=== PATIENT | male | born 1955 | race Caucasian/White ===

== ENCOUNTER 2021-03-30 02:14 | Emergency (ER) | payer MEDICARE, OTHER ==
[2021-03-30 05:53] LABS: HEMOGLOBIN 15.4 gm/dl (14.0-17.5); RED BLOOD COUNT 4.47 M/UL (4.20-5.50); WHITE BLOOD COUNT 11.4 K/UL (4.5-11.0)
[2021-03-30 06:24] LABS: BUN/CREATININE RATIO 31 (0-10)
[2021-03-30] MEDS ORDERED: PEPCID AC20 MG PO (09:49)
== END 2021-03-30 10:05 | disposition home or self-care (01) ==
LOC: ER1 02:14
PROVIDERS: Physician Assistant
DX: R04.2 Hemoptysis (principal); R10.13 Epigastric pain; R07.9 Chest pain, unspecified; Z20.822 Contact with and (suspected) exposure to COVID-19; I10 Essential (primary) hypertension; E78.5 Hyperlipidemia, unspecified
CPT/HCPCS: 0240U; 80053; 82140; 82150; 82550; 82553; 83605; 83690; 84484; 85025; 86850; 86900; 86901; 96374; 96375; 99284; C9113; G0480; J2405; J7030; Q9967

== ENCOUNTER 2021-04-15 10:52 | Emergency (ER) | payer MEDICARE, OTHER ==
[~2021-04-15 10:52] MED LIST: PEPCID AC20 MG PO
[2021-04-15 12:49] LABS: HEMOGLOBIN 12.2 gm/dl (14.0-17.5); RED BLOOD COUNT 3.85 M/UL (4.20-5.50); WHITE BLOOD COUNT 11.7 K/UL (4.5-11.0)
[2021-04-15 13:18] LABS: BUN/CREATININE RATIO 11 (0-10)
[2021-04-15] MEDS ORDERED: COLCRYS0.6 MG PO (14:00)
[2021-04-15] MEDS ORDERED: CEPHALEXIN500 M1 PO (14:00)
== END 2021-04-15 14:11 | disposition home or self-care (01) ==
LOC: ER1 10:52
PROVIDERS: Physician Assistant
DX: M71.21 Synovial cyst of popliteal space [Baker], right knee (principal); R31.29 Other microscopic hematuria; E87.6 Hypokalemia; I10 Essential (primary) hypertension; E78.5 Hyperlipidemia, unspecified
CPT/HCPCS: 80053; 81001; 82550; 82553; 84484; 84550; 85025; 87086; 93005; 93970; 99284